=== PATIENT | male | born 1995 | race Caucasian/White ===

== ENCOUNTER 2021-03-05 11:36 | Emergency (ER) | payer MEDICAID, SELFPAY ==
[2021-03-05 11:37] VITALS: BP 132/97; PULSE 118; RESP 16; TEMP 36.2; O2SAT 98; BMI 20.8
[2021-03-05 12:26] VITALS: BP 129/87; PULSE 106; RESP 16; O2SAT 97
[2021-03-05 12:27] LABS: Absolute Lymphocyte Count 1.07 X10^3/uL (0.83-4.51); Absolute Neutrophil Count 6.4 X10^3/uL (2.0-7.7); Basophil# 0.02 X10^3/uL; Basophil% 0.2 % (0-1); Hematocrit 46.2 % (40-54); Hemoglobin 15.7 g/dL (13.0-16.5); Lymphocyte # 1.07 X10^3/ul (0.83-4.51); Lymphocyte % 12.9 % (19-41); Mean Corpuscular Hgb 28.9 pg (27.0-32.0); Mean Corpuscular Volume 85.1 fL (80-94); Mean Platelet Vol. 9.9 fl (6.2-12.0); Monocyte# 0.76 X10^3/uL; Monocyte% 9.1 % (0-10); NRBC Flagged by Analyzer 0 % (0-5); Neutrophil # 6.43 X10^3/uL (2.7-7.7); Neutrophil % 77.3 % (47-70); Platelet Count 240 K/mm3 (150-450); RBC Distribution Width CV 11.7 % (11.6-14.6); RBC Distribution Width SD 36.1 fl (35.1-43.9); Red Blood Count 5.43 M/mm3 (4.6-6.2); White Blood Count 8.3 K/mm3 (4.4-11.0)
[2021-03-05 12:33] LABS: ALB/GLOB Ratio 1.3 RATIO (0.9-2.4); AST(SGOT) 32 U/L (15-37); Alanine Aminotransfer ALT/SGPT 33 U/L (16-61); Albumin, Serum 4.3 g/dL (3.2-5.0); Alkaline Phosphatase 75 U/L (45-117); Anion Gap 10 (5-15); BUN 5 mg/dL (7-18); BUN/Creat Ratio 6.7 RATIO (10-20); Calcium,Total 8.9 mg/dL (8.5-10.1); Chloride 93 mmol/L (98-107); Creatinine, Serum 0.74 mg/dL (0.70-1.30); EST Glomerular Filtration Rate 134 mL/min (>60); Est Glom Filt Rate - Afr Amer 163 mL/min (>60); Estimated Creatinine Clearance 141.22 ml/min; Globulin 3.4 g/dL (2.2-4.2); Glucose 104 mg/dL (74-106); Potassium 3.7 mmol/L (3.5-5.1); Protein, Total 7.7 g/dL (6.4-8.2); Sodium Level 132 mmol/L (136-145)
[2021-03-05] MEDS: Ketorolac 15 MG/ML Vial IV (12:54)
[2021-03-05] MEDS: 0.9% Normal Saline 1,000 ML 999 ML IV (12:54)
[2021-03-05] MEDS: Ondansetron 4 MG/2 ML Vial IV ×2 (12:54→13:46)
[2021-03-05 13:21] LABS: Amphetamine Urine VISTA NEGATIVE (<1000 ng/mL); Barbiturate Urine VISTA NEGATIVE (< 200 ng/mL); Benzodiazepine Urine VISTA NEGATIVE (< 200 ng/mL); Cocaine Urine VISTA NEGATIVE (< 300 ng/mL); Ecstacy Urine VISTA NEGATIVE (< 500 ng/mL); Methadone Urine VISTA NEGATIVE (< 300 ng/mL); PCP Urine VISTA NEGATIVE (< 25 ng/mL); THC Urine VISTA NEGATIVE (< 50 ng/mL); Vista UDS pH Range 7
--- NOTE | 2021-03-05 13:53 | ED.RN ---
pt zofran obtained. medication vial dropped on floor. placed in sharps container. new zofran vial obtained. pharmacy notified.
--- NOTE | 2021-03-05 14:02 | HP.PCM_ITS ---
History of Present Illness Date of Admission: 03/05/21 Chief Complaint: acute alcohol withdrawal The patient is a 25 year old M with a PMH as outlined, who was admitted for acute alchohol withdrawal. ....... his last drink was about an hour prior to admission. He drinks about 2/5 of vodka per day. He went through detox in [place] a week ago. Vitals in the ED wre temp of 97.2F, BP of 129/87, ME of 106 and RR of 16. BMP showed sodium of 132 with chloride of 93 and potassium of 3.7. CBC was unremarkable and platelets were 240. Has been admitted to be managed for acute alcohol withdrawal and detox. Alcohol level is 299. Past Medical History Allergies No Known Allergies Allergy (Verified 07/13/16 02:11) Home Medications: Ambulatory Orders Medication Instructions Recorded Quetiapine Fumarate [Seroquel] 50 mg PO QHS 03/05/21 Surgical History: no surgical history Psychiatric History: No pertinent psych hx Lives: Alone Smoking Status: Current every day smoker Tobacco Use: Vapor Alcohol: Heavy Drugs: None - *Family History Maternal History Items: - - hld Review of Systems Constitutional: Denies: Chills, Fever, Malaise, Weakness, Weight Change Eyes: Denies: Blurred vision HEENT: Denies: Head Aches, Sinus Congestion, Sinus Drainage Cardiovascular: Denies: Chest Pain, Chest Pressure, Chest Tightness, Heaviness, Light Headedness, Orthopnea, Palpitations, Paroxysmal Noc. Dyspnea, Syncope Respiratory: Denies: Cough, Shortness of Breath, Shortness of breath at rest, Shortness of breath upon exertion, Sputum production Gastrointestinal: Denies: Abdominal Pain, Nausea, Vomiting Genitourinary: Denies: Dysuria Musculoskeletal: Denies: Joint Pain, Joint Tenderness Skin: Denies: Rash, Wounds Neurological: Denies: Numbness, Tingling, Focal weakness Psychiatric: Denies: Anxiety, Depression, Homicidal Ideations, Suicidal Ideations Hematologic/ Lymphatic: Denies: Easy Bruising, Easy Bleeding VTE Information - Inpt Only VTE Present on Admission: No VTE Pharm Prophylaxis ordered?: Yes - Physical Exam Vitals/I&O's: Vital Signs Temp Pulse Resp BP Pulse Ox 97.2 F L 106 H 16 129/87 H 97 03/05/21 11:37 03/05/21 12:26 03/05/21 12:26 03/05/21 12:26 03/05/21 12:26 Oxygen Delivery Method Room Air Weight: 145 lb 8.081 oz Body Mass Index (BMI) 20.8 Intake and Output for Last 24 Hours 03/03/21 03/04/21 03/05/21 23:59 23:59 23:59 Intake Total 1000 / 1000 Balance 1000 / 1000 General: Alert, Oriented x3, Cooperative, No apparent distress HEENT: Atraumatic, PERRLA, EOMI, Normocephalic Oral: Dry Mucosa Neck: Supple, No JVD, Negative Carotid Bruits Lungs: Clear to auscultation, Normal air movement, No rhonchi, No wheeze, No rales Cardiovascular: Regular rate, Regular Rhythm, Normal S1, Normal S2, No murmurs Abdomen: Bowel Sounds Present, Soft, Non Tender Extremities: No edema, Capillary Refill Less than 3 Seconds Skin: No rashes, No breakdown Musculoskeletal: No Tenderness to Palpation of Joints or Extremities Neurological: Cranial nerves II-XII grossly intact, Neuro grossly intact, Motor Exam 5/5 strength throughout Psych/Mental Status: Normal Affect, Appropriate, Alert and oriented to time, place, person, mood and affect Laboratory Results 03/05/21 12:05: WBC 8.3, RBC 5.43, Hgb 15.7, Hct 46.2, MCV 85.1, MCH 28.9, MCHC 34.0, RDW Std Deviation 36.1, RDW Coeff of Mike 11.7, Plt Count 240, MPV 9.9, Immature Gran % (Auto) 0.500, Neut % (Auto) 77.3 H, Lymph % (Auto) 12.9 L, [place] % (Auto) 9.1, Eos % (Auto) 0.0, Baso % (Auto) 0.2, Absolute Neuts (auto) 6.4, Absolute Lymphs (auto) 1.07, Nucleated RBC % 0 03/05/21 12:05: Sodium 132 L, Potassium 3.7, Chloride 93 L, Carbon Dioxide 29.0, Anion Gap 10, BUN 5 L, Creatinine 0.74, Estim Creat Clear Calc 141.22, Est GFR (MDRD) Af Amer 163, Est GFR (MDRD) Non-Af 134, BUN/Creatinine Ratio 6.7 L, Glucose 104, Calcium 8.9, Total Bilirubin 0.70, AST 32, ALT 33, Alkaline Phosphatase 75, Total Protein 7.7, Albumin 4.3, Globulin 3.4, Albumin/Globulin Ratio 1.3 03/05/21 12:05: Ethyl Alcohol 299.0 03/05/21 12:56: Urine Opiates Screen NEGATIVE, Urine Methadone Screen NEGATIVE, Ur Barbiturates Screen NEGATIVE, Ur Phencyclidine Scrn NEGATIVE, Ur Amphetamines Screen NEGATIVE, U Methamphetamin-MDMA NEGATIVE, U Benzodiazepines Scrn NEGATIVE, Urine Cocaine Screen NEGATIVE, U Cannabinoids Screen NEGATIVE, Ur Drug Screen Comment Assessment/Plan All Active Problems Arthritis of both knees (Acute) Overdose (Acute) 25 y/o admitted for acute alcohol withdrawal #Acute alcohol withdrawal * admit to med surg * oral thiamine, folic acid and multivite * alcohol withdrawal protocol with phenobarbital * Monitor CIWA score * DVT prophylaxis: low risk, encourage to ambulate Inpatient E&M: 90356 Init Hosp L3
--- NOTE | 2021-03-05 14:11 | ED.DCSUM_ITS ---
- ER Visit Summary Date of Service: 03/05/21 Chief Complaint: Alcohol abuse History of Present Illness: The patient is a [address] Diaz. He reports that he went through detox in [place] approximately 1 year ago. States that he had done well until 1 week ago. He has been drinking daily since then. He reports that he is drinking 2/5 of vodka a day. His last drink was 2 hours ago. States that he went through a pack white claws today. Patient reports that he is nauseated and had diarrhea for the past 5 days. He states he has had subjective fever and chills. He does admit to depression. He denies any suicidal ideation. Physical Examination: Vitals: Stable. Afebrile. General: Well-nourished and well-developed. Head: Normocephalic atraumatic. Neck: Supple, no lymphadenopathy. No JVD. Nontender. Cardiovascular: Regular rate and rhythm. No murmurs. Respiratory: No respiratory distress. Clear to auscultation bilaterally. Abdominal: Soft, nontender, nondistended, normal bowel sounds. No guarding, rebound, or peritoneal signs. Back: Nontender. Extremities: Nontender, no edema. Skin: Normal color, no rash. Neurologic: Alert and oriented ?3. Cranial nerves II through XII are intact. Normal strength and sensation. Psych: Normal affect. Test Results: CBC shows stable neutrophils 77 lymphocytes 13. Chem-7 shows a sodium 132, chloride 93, BUN of 5. LFTs are normal. Alcohol level is 299. Talk screen is negative. Emergency Department Course and Treatment: Patient had an IV placed. Is given liter normal saline. Is given Zofran and Toradol IV. He is resting more comfortably. Treatment Plan: The patient was discussed with Dr. Arteaga. He will be admitted to the hospital for further evaluation and treatment. I went into the patient's room to tell him that he was admitted to the hospital. States that he has changed his mind and does not want to be admitted to the hospital for his alcohol abuse. He states that he does to AA and has a sponsor. He will call for a ride to home. He instructed to follow-up with 180 soon as possible. Disposition: Discharged in stable condition. Impression: 1. Alcohol abuse. This note was generated with [employer] software. It may contain incorrect words, spelling, and punctuation that were not noted in review of the chart prior to signing ED Disposition - Plan for ED Patient: Instructions: ED Alcohol Intoxication Referrals: [facility] [STAFF PHYSICIAN] - As soon as possible
--- NOTE | 2021-03-05 14:23 | ED.RN ---
THIS RN WENT TO CHECK ON PT. PT HAD D/C IV AND COVERED SITE WITH BANDAID. IV CATHETER INTACT LAYING ON [facility] CART. PT INFORMED THAT HE NEEDS TO CALL FOR A RIDE BECAUSE HE IS INTOXICATED. THIS RN VISUALIZES PT CALL FOR RIDE HOME. PT DRESSED AWAITING D/C INSTRUCTIONS.
--- NOTE | 2021-03-05 14:30 | ED.RN ---
THIS RN WENT TO DISCHARGE PT. PT NO LONGER PRESENT IN ROOM. LEFT WITHOUT D/C INSTRUCTIONS.
== END 2021-03-05 14:39 | disposition left against medical advice (07) ==
LOC: ED 12:28
PROVIDERS: Emergency Provider Emergency Medicine; PCP Student in an Organized Health Care Education/Training Program
DX: F10.10 Alcohol abuse, uncomplicated (principal); Y90.8 Blood alcohol level of 240 mg/100 ml or more; F17.290 Nicotine dependence, other tobacco product, uncomplicated
CPT/HCPCS: 80053; 80307; 82077; 85025; 96361; 96374; 96375; 99283; J7030; A4216; J2405

== ENCOUNTER 2021-03-05 20:39 | Inpatient (IN) | payer MEDICAID, SELFPAY ==
[2021-03-05 11:37] VITALS: BMI 20.8
[2021-03-05 20:40] VITALS: BP 160/69; PULSE 102; RESP 18; TEMP 35.9; O2SAT 96; BMI 21.2
[2021-03-05 20:52] VITALS: BP 127/75; PULSE 96; RESP 20; O2SAT 96
--- NOTE | 2021-03-05 20:55 | ED.VIS.GEN ---
History of Present Illness Chief Complaint: ETOH Intox Informant: Patient, Family Narrative: Patient is a 25-year-old male with history of bipolar disorder and alcohol abuse presenting for alcohol detox. Patient has been on a padilla for the past week drinking approximately 2-3/5 of vodka a day, wine and white clots. Patient states he was sober up until week ago. He was sober for 10 months. He notes that since he has been drinking he has been having headaches, vomiting and feeling shaky. Patient was in the ER earlier today for detox but he states he got too nervous and left. He came back with his family because he has to do this. Patient notes that he did drink a sixpack of white claws before coming to the ER now. He vapes tobacco but denies any drug use or other tobacco use. No other complaints at this time. Past Medical History - Allergies and Home Meds Allergies/Adverse Reactions: Allergies No Known Allergies Allergy (Verified 07/13/16 02:11) Primary Care Physician: Eddie Diaz DO [Primary Care Provider] - Surgical History: no surgical history Smoking Status: Current every day smoker - Family History Maternal Family History: Reports: - - hld Review of Systems General: Reports: Malaise. Denies: Chills, Fever, Sweats Eyes: Denies: Visual changes - bilaterally, Diplopia ENT: Denies: Rhinorrhea, Sore throat Cardiovascular: Denies: Chest pain, Palpitations Respiratory: Denies: Dyspnea, Cough, Dyspnea on exertion Gastrointestinal: Reports: Nausea, Vomiting. Denies: Abdominal pain, Diarrhea, Melena, Hematochezia Genitourinary: Denies: Dysuria, Hematuria, Frequency Musculoskeletal: Denies: Back pain, Extremity Pain Skin: Denies: Rash, Wounds Neurological: Denies: Headache, Weakness, Numbness Psych: Reports: Anxiety. Denies: Depression, Suicidal thoughts, Suicidal ideations Physical Exam Vital Signs/Narrative: Vital Signs Temp Pulse Resp BP Pulse Ox 03/05/21 20:40 96.6 F L 102 H 18 160/69 H 96 Inital Vital Signs reviewed: Yes General: Well nourished, Well developed, No Acute Distress Head: Normocephalic, Atraumatic Eyes: Perrl, EOMI ENT: Moist mucous membranes, No rhinorrhea Neck: Supple, Nontender Cardiovascular: Regular rate, Regular rhythm, No murmurs Respiratory: No distress, CTA bilaterally, Chest nontender Abdomen: Soft, Nontender, Nondistended, Normal bowel sounds Back: Nontender, Normal Inspection Extremities: Nontender, No edema Skin: Normal color, No rash Neurological: Alert, Oriented x3, Cranial nerves II-XII grossly intact, Normal Strength, Normal Sensation Psychological: Normal affect, Normal Mood Diagnostic/Tx/Re-eval - Medical Decision Making Patient is evaluated for alcohol detox. He does not appear to be acutely withdrawing however he does feel quite anxious. Patient was seen earlier today and then went home and drank more and then came back his last drink was about an hour prior to arrival. He had labs drawn today so did not repeat them. Patient is given Zofran for his nausea. He will be admitted for inpatient detox. Patient is agreeable with this plan of care and states he will stay this time. ED Disposition - Plan for ED Patient: Disposition: Acute Care Hospital [facility] Diagnosis: Alcohol dependency Referrals: Eddie Diaz DO [Primary Care Provider] -
--- NOTE | 2021-03-05 20:57 | PCM.HP.STD ---
Problem List (1) Alcohol withdrawal Status: Acute Qualifiers: Complication of substance-induced condition: with unspecified complication Qualified Code(s): F10.239 - Alcohol dependence with withdrawal, unspecified (2) Tobacco use Status: Chronic (3) Anxiety and depression Status: Chronic (4) Bipolar disorder Status: Chronic Qualifiers: Active/Remission status: remission status unspecified Qualified Code(s): F31.9 - Bipolar disorder, unspecified (5) History of suicide attempt Status: Chronic History of Present Illness Date of Admission: 03/05/21 Chief Complaint: EtOH withdrawal The patient is a 25 y/o M w/ PMHx: Tobacco use, Anxiety and Depression, EtOH Abuse, History of opiate abuse (snorted vicodin prior) who presents to the [facility] on 03/05/21 w/ noted acute EtOH withdrawal, onset starting earlier in the day given decreased amount of intake following last EtOH intake prior to ED arrival normal consumption 2-3/5 of vodka per day as in addition to wine and white claw with reported history of being sober recently up until approximately a week ago with onset significant padilla despite having been sober for 10 months. Patient now presenting with onset of nausea, tremors, agitation, tactile disturbances. Patient interested in attaining sober status noting that he needs to do this for his family and states that if he continues to drink it will likely lead to his early . He does report that he started drinking again over the last week secondary to a break-up. He does report poor oral intake over the last several days secondary to depression but no specific suicidal ideation. He is taking his antidepressant/antianxiolytic/bipolar regimen. Patient initially presented earlier in the day to the ED and at that time was offered admission but ended up leaving and now returns. ED labs performed earlier in the day included CBC with WC 8.3, hemoglobin 15.7, platelet 240 without marked shift, CMP with sodium 132, chloride 93 otherwise unremarkable including hepatic profile, urine drug screen negative, ethyl alcohol level at that time had been 299. Past Medical History Past Medical History (Chronic Problems): Chronic Problems Tobacco use (Chronic) Anxiety and depression (Chronic) Bipolar disorder (Chronic) History of suicide attempt (Chronic) Allergies No Known Allergies Allergy (Verified 07/13/16 02:11) Home Medications: Ambulatory Orders Medication Instructions Recorded Divalproex Sodium 250 mg PO QHS 03/05/21 Quetiapine Fumarate [Seroquel] 50 mg PO QHS 03/05/21 busPIRone [Buspar] 1 capsule PO DAILY 03/05/21 Surgical History: no surgical history Psychiatric History: Anxiety, Bipolar, Depression, Prior suicide attempt Lives: With Family - Patient lives with his parents. Smoking Status: Current every day smoker Tobacco Use: Vapor - Patient notes 1 cartridge usually lasts in 1 week., - - Patient prior to vaping smokes cigarette tobacco since youth approximately 5 cigarettes daily but quit and transition to vaping over the last half a year. Alcohol: Heavy - Patient currently started drinking again approximately 2-3/5 vodka in addition to wine and white claws. Drugs: - - Patient previous usage of opiates, notes being clean for the last 3 to 4 years. - *Family History Maternal History Items: High Cholesterol Paternal History Items: High Cholesterol, Hypertension Review of Systems Constitutional: Reports: Anorexia, Malaise, Weakness, Fatigue. Denies: Chills, Fever, Weight Change HEENT: Denies: Head Aches, Sinus Congestion, Sinus Drainage Cardiovascular: Denies: Chest Pain, Palpitations Respiratory: Denies: Cough, Shortness of breath at rest, Sputum production Gastrointestinal: Reports: Nausea. Denies: Abdominal Pain, Vomiting Genitourinary: Denies: Dysuria Musculoskeletal: Reports: Joint Pain. Denies: Joint Tenderness Skin: Denies: Rash, Wounds Neurological: Denies: Numbness, Tingling, Focal weakness Psychiatric: Reports: Anxiety, Depression. Denies: Homicidal Ideations, Suicidal Ideations Hematologic/ Lymphatic: Denies: Easy Bruising, Easy Bleeding VTE Information - Inpt Only VTE Present on Admission: No VTE Mechan Device Prophylaxis: None VTE Pharm Prophylaxis ordered?: No Reason prophylaxis not ordered:: Treatment Not Indicated Patient Problems: Active and Suspected Problems Alcohol dependency (Acute) Subjective: Patient seated upright in the ED bed, fatigued, tearful during discussions, mild tremors. Objective: Physical Examination: General: awake, alert, oriented x 3 and cooperative, seated upright in the ED bed, fatigued, tearful during discussions, mild tremors evident. Skin: normal color, turgor, no icterus, cyanosis. HEENT: AT/NC, EOMI, PERRLA, dry MM, no carotid bruits or JVD noted. Lungs: CTA bilaterally, moderate effort, mild decrease BL bases, no rales, ronchi or wheezing. Heart: Tachycardic with regular rhythm; no gallop, rub audible. Abdomen: soft, NTTP, ND, normal BS, no HSM. Extremities: no cyanosis, clubbing, or edema. Neurological: patient awake, alert, oriented as noted; cognitive function intact; pupils equally reactive to light and accomodation; cranial nerves II-XII grossly normal, moving all 4 extremities, no focal deficits, strength mildly global decrease secondary to acute presentation, mild tremors evident. Psychiatric: affect appears tearful, anxious, does admit to anxiety and depression, recent break-up, no SI. - Physical Exam Vitals/I&O's: Vital Signs Temp Pulse Resp BP Pulse Ox 96.6 F L 102 H 18 160/69 H 96 03/05/21 20:40 03/05/21 20:40 03/05/21 20:40 03/05/21 20:40 03/05/21 20:40 Oxygen Delivery Method Room Air Weight: 147 lb 11.355 oz Body Mass Index (BMI) 21.2 Assessment/Plan All Active Problems Alcohol dependency (Acute) Alcohol withdrawal (Acute) Arthritis of both knees (Acute) Overdose (Acute) The patient is a 25 y/o M w/ PMHx: Tobacco use, Anxiety and Depression, EtOH Abuse, History of opiate abuse (snorted vicodin prior) who presents to the [facility] on 03/05/21 w/ noted acute EtOH withdrawal. 1. Acute EtOH Withdrawal: Will admit to medical surgical floor, routine labs obtained in the ED earlier as noted. Given interest in sobriety, will initiate and continue on protocol with taper course of Phenobarbital, scheduled gabapentin for seizure prophylaxis, as needed Catapres, Bentyl, Vistaril, IV fluids, IV antiemetics, Tylenol as needed for pain. Will consult Case management for assistance for transition to next level of rehabilitation care. Mag, phos pending. Maintain on C[facility] protocol concurrently. 2. History of polysubstance abuse including prior opiate use: Patient with prior remote admission with at that time Tylenol and opiate overdose, had been snorting [place] but denies any current use and states he has been clean for 3 to 4 years, UDS performed earlier in the day upon initial ED presentation negative. 3. Anxiety and Depression: We will continue patient home BuSpar, Depakote and Seroquel once dosing verified, encourage continued outpatient follow-up as likely associate with #1 especially given recent break-up. 4. Tobacco Abuse: Encouraged cessation including recent transition to vaping and discussed health concerns, inpatient consultation per RT, NR if desired. 5. DVT prophylaxis: Low risk, encourage ambulation. Inpatient E&M: 26394 Init Hosp L3
[2021-03-05] MEDS: Ondansetron ODT 4 MG Tablet PO (21:06)
[2021-03-05 21:20] VITALS: BP 123/84; PULSE 94; RESP 20; TEMP 36.7; O2SAT 96
[2021-03-05 21:57] VITALS: BP 124/63; PULSE 90; RESP 18; TEMP 37.2; O2SAT 99
[2021-03-05 22:00] VITALS: BMI 20.8
[2021-03-05 22:11] VITALS: BMI 20.9
[2021-03-05] MEDS: Ondansetron 8 MG Tablet PO (23:01)
[2021-03-05] MEDS: 0.9% Saline Lock 10 ML Syringe IV (23:04)
[2021-03-05 23:08] LABS: Magnesium 1.1 mg/dL (1.6-2.6); Phosphorus 1.6 mg/dL (2.5-4.9)
[2021-03-05] MEDS: Phenobarbital 32.4 MG Tablet 64.8 MG PO (23:25)
[2021-03-05] MEDS: Divalproex Sodium 250 MG Tablet PO (23:26)
[2021-03-05] MEDS: QUEtiapine 25 MG Tablet 50 MG PO (23:27)
[2021-03-05] MEDS: Magnesium Sulfate 4gm/100mL 4 GM/100 ML IV.SOLN. IV (23:53)
[2021-03-06] VITALS (10 sets, daily range): BP systolic 102–144; BP diastolic 62–89; PULSE 79–109; RESP 16–18; TEMP 36.7–37.3; O2SAT 96–99
[2021-03-06] MEDS: 0.9% Saline Lock 10 ML Syringe IV ×3 (00:35→22:56)
[2021-03-06] MEDS: Phenobarbital 32.4 MG Tablet 64.8 MG PO ×6 (02:40→22:54)
[2021-03-06] MEDS: hydrOXYzine PAM 25 MG Capsule 50 MG PO (02:40)
[2021-03-06] MEDS: Loperamide 2 MG Capsule PO ×2 (02:41→06:43)
[2021-03-06] MEDS: Folic Acid 1 MG Tablet PO (07:37)
[2021-03-06] MEDS: Multivitamins,Therapeutic Tablet 1 TABLET PO (07:38)
[2021-03-06] MEDS: Thiamine Hydrochloride 100 MG Tablet PO (07:38)
[2021-03-06 09:04] LABS: Magnesium 2.7 mg/dL (1.6-2.6); Phosphorus 2.9 mg/dL (2.5-4.9)
[2021-03-06] MEDS: Mag Hydrox/Al Hydrox/Simeth 30 ML UDC PO (09:05)
[2021-03-06] MEDS: busPIRone 15 MG TABLET PO (09:06)
[2021-03-06] MEDS: Na Biphos/Potassium Phosphate PACKET 1 PACKET PO ×4 (10:51→22:53)
--- NOTE | 2021-03-06 11:26 | CASEMGMT ---
SOCIAL WORK Patient admitted to [facility] last evening. Call to [facility] Treatment Navigator, Elaine. Per Elaine, will be in tomorrow to complete assessment. Albert Hogue, CSR RETAIL, [employer]
--- NOTE | 2021-03-06 14:23 | PCM.PROGNOTE ---
Patient Problems: Active and Suspected Problems Alcohol dependency (Acute) Alcohol withdrawal (Acute) Subjective: Patient was seen and examined today, he is asking this examiner when he thought he could be discharged, he states he is planning to follow-up with outpatient detox services after discharge. Patient does not complain of tremor or excessive nervousness today - Physical Exam Vitals/I&O's: Vital Signs Temp Pulse Resp BP Pulse Ox 99 F 102 H 16 102/73 98 03/06/21 10:00 03/06/21 10:00 03/06/21 10:00 03/06/21 10:00 03/06/21 10:00 Oxygen Delivery Method Room Air Weight: 66.1 kg Body Mass Index (BMI) 20.8 Intake and Output for Last 24 Hours 03/04/21 03/05/21 03/06/21 23:59 23:59 23:59 Intake Total 1357 / 1357 Balance 1357 / 1357 General: Alert, Oriented x3, Cooperative, No apparent distress, Well developed, Well nourished HEENT: Atraumatic, PERRLA, EOMI, Normocephalic Oral: Moist Mucosa Neck: Supple, No JVD, Trachea Midline, Thyroid Normal Size and Texture Lungs: Clear to auscultation, Normal air movement, No rhonchi, No wheeze, No rales Cardiovascular: Regular rate, Regular Rhythm, Normal S1, Normal S2, No murmurs, PMI Normal, No rub noted, No Gallop Abdomen: Bowel Sounds Present, Soft, Non Tender, Non-Distended, No hernias noted Extremities: No clubbing, No cyanosis, No edema, Capillary Refill Less than 3 Seconds Skin: No rashes, No breakdown Musculoskeletal: No Tenderness to Palpation of Joints or Extremities Neurological: Cranial nerves II-XII grossly intact, Neuro grossly intact, Sensory exam intact to light touch and pain, Coordination normal Psych/Mental Status: Normal Affect, Appropriate, Alert and oriented to time, place, person, mood and affect Laboratory Results 03/05/21 12:05: Phosphorus 1.6 L, Magnesium 1.1 L 03/06/21 08:12: Phosphorus 2.9, Magnesium 2.7 H Current Medications Al Hydroxide/Mg Hydroxide (Mag Hydrox/Al Hydrox/Simeth 30 Ml Udc) 30 ml PO Q4H PRN PRN PRN Reason: DYSPEPSIA Last Admin: 03/06/21 09:05 Dose: 30 ml Documented by: Albuterol Sulfate (Albuterol 2.5 Mg/3 Ml Vial.Neb.) 2.5 mg INHALATION Q2H PRN PRN PRN Reason: Dyspnea, wheezing Buspirone HCl (Buspirone 15 Mg Tablet) 15 mg PO BID [facility] Last Admin: 03/06/21 09:06 Dose: 15 mg Documented by: Divalproex Sodium (Divalproex Sodium 250 Mg Tablet) 250 mg PO QHS [facility] Last Admin: 03/05/21 23:26 Dose: 250 mg Documented by: Folic Acid (Folic Acid 1 Mg Tablet) 1 mg PO DAILY@0800 [facility] Last Admin: 03/06/21 07:37 Dose: 1 mg Documented by: Multivitamins (Multivitamins,Therapeutic Tablet) [facility] Last Admin: 03/06/21 07:38 Dose: 1 tablet Documented by: Nicotine (Nicotine 14 Mg Patch) 14 mg TD DAILY [facility] Last Admin: 03/06/21 09:06 Dose: 14 mg Documented by: Ondansetron HCl (Ondansetron 8 Mg Tablet) 8 mg PO Q8H PRN PRN PRN Reason: NAUSEA Last Admin: 03/05/21 23:01 Dose: 8 mg Documented by: Phenobarbital (Phenobarbital 32.4 Mg Tablet) 97.2 mg PO Q4H [facility]; Taper Stop: 03/10/21 06:59 Last Admin: 03/06/21 10:51 Dose: 97.2 mg Documented by: Potassium Phos/Sodium Phos (Na Biphos/Potassium Phosphate Packet) 1 packet PO 4X/DAY [facility] Last Admin: 03/06/21 10:51 Dose: 1 packet Documented by: Quetiapine Fumarate (Quetiapine 25 Mg Tablet) 50 mg PO QHS [facility] Last Admin: 03/05/21 23:27 Dose: 50 mg Documented by: Sodium Chloride (0.9% Saline Lock 10 Ml Syringe) 10 - 40 ml IV UD PRN PRN Reason: SALINE FLUSH Last Admin: 03/06/21 06:39 Dose: 10 ml Documented by: Thiamine HCl (Thiamine Hydrochloride 100 Mg Tablet) [facility] Last Admin: 03/06/21 07:38 Dose: 100 mg Documented by: Trazodone HCl (Trazodone 100 Mg Tablet) 100 mg PO QHS PRN PRN Reason: INSOMNIA Medical Necessity - Tobacco Use Smoking Status: Current every day smoker Tobacco Use: Vapor, - Assessment/Plan All Active Problems Alcohol dependency (Acute) Alcohol withdrawal (Acute) Overdose (Acute) #1 acute alcohol withdrawal, continue present medications, I have discontinued some of the medications I do not believe the patient needs at this time #2 chronic alcoholism #3 anxiety/depression #4 hypomagnesemia-this is corrected #5 hypophosphatemia Inpatient E&M: 59595 Subs Hosp L2
[2021-03-06] MEDS: QUEtiapine 25 MG Tablet 50 MG PO (22:53)
[2021-03-06] MEDS: Divalproex Sodium 250 MG Tablet PO (22:54)
[2021-03-07 03:19] VITALS: BP 116/60; PULSE 64; RESP 16; TEMP 36.8; O2SAT 97
[2021-03-07] MEDS: Phenobarbital 32.4 MG Tablet 64.8 MG PO ×6 (03:20→22:03)
[2021-03-07 06:36] VITALS: O2SAT 94
[2021-03-07 07:25] VITALS: BP 108/65; PULSE 66; RESP 16; TEMP 36.6; O2SAT 98
[2021-03-07] MEDS: Thiamine Hydrochloride 100 MG Tablet PO (07:35)
[2021-03-07] MEDS: Multivitamins,Therapeutic Tablet 1 TABLET PO (07:35)
[2021-03-07] MEDS: Folic Acid 1 MG Tablet PO (07:36)
[2021-03-07] MEDS: busPIRone 15 MG TABLET PO ×3 (07:36→22:03)
[2021-03-07] MEDS: Na Biphos/Potassium Phosphate PACKET 1 PACKET PO ×4 (10:31→22:03)
[2021-03-07 14:41] VITALS: BP 134/81; PULSE 97; RESP 16; TEMP 37.2; O2SAT 98
--- NOTE | 2021-03-07 16:02 | PN_ITS ---
Patient Problems: Active and Suspected Problems Alcohol dependency (Acute) Alcohol withdrawal (Acute) Subjective: Patient was seen and examined today, he was meeting with addiction director social to discuss discharge planning, patient asked me if he could be discharged today and I told him I advised against it. This afternoon he requested something for anxiety-I increased his BuSpar and placed him on some Vistaril. The plan as it stands appears to be that he will be discharged tomorrow with follow-up as an outpatient in the [facility]. Patient does not feel at this time that he is having serious withdrawal symptoms, he did complain about being nervous this afternoon however. - Physical Exam Vitals/I&O's: Vital Signs Temp Pulse Resp BP Pulse Ox 99.0 F 97 16 134/81 H 98 03/07/21 14:41 03/07/21 14:41 03/07/21 14:41 03/07/21 14:41 03/07/21 14:41 Oxygen Delivery Method Room Air Weight: 66.1 kg Body Mass Index (BMI) 20.8 Intake and Output for Last 24 Hours 03/05/21 03/06/21 03/07/21 23:59 23:59 23:59 Intake Total 1857 / 2357 500 / 500 Balance 1857 / 2357 500 / 500 General: Alert, Oriented x3, Cooperative, No apparent distress, Well developed, Well nourished HEENT: Atraumatic, PERRLA, EOMI, Normocephalic Oral: Moist Mucosa Neck: Supple, No JVD, Trachea Midline, Thyroid Normal Size and Texture Lungs: Clear to auscultation, Normal air movement, No rhonchi, No wheeze, No rales Cardiovascular: Regular rate, Regular Rhythm, Normal S1, Normal S2, No murmurs, PMI Normal, No rub noted, No Gallop Abdomen: Bowel Sounds Present, Soft, Non Tender, Non-Distended, No hernias noted Extremities: No clubbing, No cyanosis, No edema, Capillary Refill Less than 3 Seconds Skin: No rashes, No breakdown Musculoskeletal: No Tenderness to Palpation of Joints or Extremities Neurological: Cranial nerves II-XII grossly intact, Neuro grossly intact, Motor Exam 5/5 strength throughout, Sensory exam intact to light touch and pain Psych/Mental Status: Normal Affect, Appropriate, Alert and oriented to time, place, person, mood and affect Current Medications Al Hydroxide/Mg Hydroxide (Mag Hydrox/Al Hydrox/Simeth 30 Ml Udc) 30 ml PO Q4H PRN PRN PRN Reason: DYSPEPSIA Last Admin: 03/06/21 09:05 Dose: 30 ml Documented by: Albuterol Sulfate (Albuterol 2.5 Mg/3 Ml Vial.Neb.) 2.5 mg INHALATION Q2H PRN PRN PRN Reason: Dyspnea, wheezing Buspirone HCl (Buspirone 15 Mg Tablet) 15 mg PO TID [facility] Last Admin: 03/07/21 15:10 Dose: 15 mg Documented by: Divalproex Sodium (Divalproex Sodium 250 Mg Tablet) 250 mg PO QHS [facility] Last Admin: 03/06/21 22:54 Dose: 250 mg Documented by: Folic Acid (Folic Acid 1 Mg Tablet) 1 mg PO DAILY@0800 [facility] Last Admin: 03/07/21 07:36 Dose: 1 mg Documented by: Hydroxyzine Pamoate (Hydroxyzine Leelee 25 Mg Capsule) 50 mg PO Q6H PRN PRN PRN Reason: ANXIETY Multivitamins ([facility]it[facility],Therapeutic Tablet) [facility] Last Admin: 03/07/21 07:35 Dose: 1 tablet Documented by: Nicotine (Nicotine 14 Mg Patch) 14 mg TD DAILY [facility] Last Admin: 03/07/21 10:31 Dose: 14 mg Documented by: Ondansetron HCl (Ondansetron 8 Mg Tablet) 8 mg PO Q8H PRN PRN PRN Reason: NAUSEA Last Admin: 03/05/21 23:01 Dose: 8 mg Documented by: Phenobarbital (Phenobarbital 32.4 Mg Tablet) 64.8 mg PO Q4H [facility]; Taper Stop: 03/10/21 06:59 Last Admin: 03/07/21 14:48 Dose: 64.8 mg Documented by: Potassium Phos/Sodium Phos (Na Biphos/Potassium Phosphate Packet) 1 packet PO 4X/DAY [facility] Last Admin: 03/07/21 14:49 Dose: 1 packet Documented by: Quetiapine Fumarate (Quetiapine 25 Mg Tablet) 50 mg PO QHS [facility] Last Admin: 03/06/21 22:53 Dose: 50 mg Documented by: Sodium Chloride (0.9% Saline Lock 10 Ml Syringe) 10 - 40 ml IV UD PRN PRN Reason: SALINE FLUSH Last Admin: 03/06/21 22:56 Dose: 10 ml Documented by: Thiamine HCl (Thiamine Hydrochloride 100 Mg Tablet) 100 mg PO DAILYCM JANI Last Admin: 03/07/21 07:35 Dose: 100 mg Documented by: Trazodone HCl (Trazodone 100 Mg Tablet) 100 mg PO QHS PRN PRN Reason: INSOMNIA Medical Necessity - Tobacco Use Smoking Status: Current every day smoker Tobacco Use: Vapor, - Assessment/Plan All Active Problems Alcohol dependency (Acute) Alcohol withdrawal (Acute) Overdose (Resolved) #1 acute alcohol withdrawal, continue present medications, I have increased the patient's BuSpar today to 3 times a day and I placed him on Vistaril as needed for anxiety. I anticipate the patient being discharged tomorrow to outpatient follow-up for detox services. #2 chronic alcoholism #3 anxiety/depression #4 hypomagnesemia-this is corrected #5 hypophosphatemia-corrected Inpatient E&M: 11259 Subs Hosp L2
[2021-03-07 19:50] VITALS: BP 130/73; PULSE 88; RESP 14; TEMP 36.8; O2SAT 96
[2021-03-07] MEDS: hydrOXYzine PAM 25 MG Capsule 50 MG PO (19:56)
[2021-03-07] MEDS: QUEtiapine 25 MG Tablet 50 MG PO (22:03)
[2021-03-07] MEDS: Divalproex Sodium 250 MG Tablet PO (22:03)
[2021-03-08 02:14] VITALS: BP 108/69; PULSE 86; RESP 16; TEMP 36.5; O2SAT 96
[2021-03-08] MEDS: Phenobarbital 32.4 MG Tablet 64.8 MG PO ×2 (02:18→06:11)
[2021-03-08] MEDS: busPIRone 15 MG TABLET PO (06:12)
[2021-03-08 08:16] VITALS: O2SAT 96
[2021-03-08] MEDS: Na Biphos/Potassium Phosphate PACKET 1 PACKET PO (08:57)
[2021-03-08] MEDS: Thiamine Hydrochloride 100 MG Tablet PO (08:57)
[2021-03-08] MEDS: Folic Acid 1 MG Tablet PO (08:57)
[2021-03-08] MEDS: hydrOXYzine PAM 25 MG Capsule 50 MG PO (09:00)
[2021-03-08] MEDS: Multivitamins,Therapeutic Tablet 1 TABLET PO (09:00)
[2021-03-08 09:13] VITALS: BP 130/76; PULSE 88; RESP 16; TEMP 36.6; O2SAT 100
--- NOTE | 2021-03-08 09:17 | DCINST_ITS ---
- Discharge Diagnoses Current Active Problems: Current Active and Chronic Problems Alcohol dependency (Acute) Alcohol withdrawal (Acute) Tobacco use (Chronic) Anxiety and depression (Chronic) Bipolar disorder (Chronic) History of suicide attempt (Chronic) You will use the following diet at home:: No restrictions Allergies/Adverse Reactions: Allergies No Known Allergies Allergy (Verified 07/13/16 02:11) Medications to take at Discharge Divalproex Sodium 250 mg PO QHS 03/05/21 Quetiapine Fumarate [Seroquel] 50 mg PO QHS 03/05/21 busPIRone [Buspar] 1 capsule PO BID 03/05/21 Multivitamins,Therapeutic [Multivitamin] 1 tablet PO DAILYCM tablet 03/08/21 Primary Care Physician: Eddie Diaz DO [Primary Care Provider] - Test Results: Test results from this visit will be discussed in further detail at your follow- up appointment, if applicable. Please Follow Up With: YANI Proposed Discharge Date: 03/08/21
--- NOTE | 2021-03-08 09:18 | DS.PCM_ITS ---
Discharge Date and Diagnosis - Problem List Patient Problems: Active and Suspected Problems Alcohol dependency (Acute) Alcohol withdrawal (Acute) Date of Admission: 03/05/21 Date of Discharge: 03/08/21 - Primary Discharge Diagnosis Acute Problems: Active Problems Alcohol dependency (Acute) Alcohol withdrawal (Acute) - Secondary Discharge Diagnosis Chronic Problems: Chronic Problems Tobacco use (Chronic) Anxiety and depression (Chronic) Bipolar disorder (Chronic) History of suicide attempt (Chronic) Hospital Course and Treatment Operations: None Procedures: None Summary of Care Provided: The patient is a 25 year old M presents seeking treatment for alcohol withdrawal. Patient had been seen earlier in the day and then laughed when to come back to the emergency room. Patient was drinking 2-3/5 of vodka per day in addition to wine and white claws. Patient was started on phenobarbital his other medications for other somatic complaints. Patient was complaining of some anxiety and his buspirone was increased from twice daily to 3 times daily. Patient has remained stable during his hospitalization and has not had any decompensation from his alcohol withdrawal. Patient will be following up with [facility] in [place] for further addiction treatment. He will be discharged in stable condition. [] Patient Problems: Active and Suspected Problems Alcohol dependency (Acute) Alcohol withdrawal (Acute) - Physical Exam Vitals/I&O's: Vital Signs Temp Pulse Resp BP Pulse Ox 36.6 C 88 16 130/76 H 100 03/08/21 09:13 03/08/21 09:13 03/08/21 09:13 03/08/21 09:13 03/08/21 09:13 Oxygen Delivery Method Room Air Weight: 66.1 kg Body Mass Index (BMI) 20.8 Intake and Output for Last 24 Hours 03/06/21 03/07/21 03/08/21 23:59 23:59 23:59 Intake Total 1856 / 2356 1050 / 1050 Balance 1856 1050 / 1050 General: Alert, No apparent distress HEENT: Atraumatic, Normocephalic Psych/Mental Status: Appropriate, Flat Affect Current Medications Al Hydroxide/Mg Hydroxide (Mag Hydrox/Al Hydrox/Simeth 30 Ml Udc) 30 ml PO Q4H PRN PRN PRN Reason: DYSPEPSIA Last Admin: 03/06/21 09:05 Dose: 30 ml Documented by: Albuterol Sulfate (Albuterol 2.5 Mg/3 Ml Vial.Neb.) 2.5 mg INHALATION Q2H PRN PRN PRN Reason: Dyspnea, wheezing Buspirone HCl (Buspirone 15 Mg Tablet) 15 mg PO TID [facility] Last Admin: 03/08/21 06:12 Dose: 15 mg Documented by: Divalproex Sodium (Divalproex Sodium 250 Mg Tablet) 250 mg PO QHS [facility] Last Admin: 03/07/21 22:03 Dose: 250 mg Documented by: Folic Acid (Folic Acid 1 Mg Tablet) 1 mg PO DAILY@0800 [facility] Last Admin: 03/08/21 08:57 Dose: 1 mg Documented by: Hydroxyzine Pamoate (Hydroxyzine Leelee 25 Mg Capsule) 50 mg PO Q6H PRN PRN PRN Reason: ANXIETY Last Admin: 03/08/21 09:00 Dose: 50 mg Documented by: Multivitamins ([facility]ivit[facility],Therapeutic Tablet) [facility] Last Admin: 03/08/21 09:00 Dose: 1 tablet Documented by: Nicotine (Nicotine 14 Mg Patch) 14 mg TD DAILY [facility] Last Admin: 03/08/21 08:58 Dose: 14 mg Documented by: Ondansetron HCl (Ondansetron 8 Mg Tablet) 8 mg PO Q8H PRN PRN PRN Reason: NAUSEA Last Admin: 03/05/21 23:01 Dose: 8 mg Documented by: Phenobarbital (Phenobarbital 32.4 Mg Tablet) 64.8 mg PO Q6H [facility]; Taper Stop: 03/10/21 06:59 Last Admin: 03/08/21 06:11 Dose: 64.8 mg Documented by: Potassium Phos/Sodium Phos (Na Biphos/Potassium Phosphate Packet) 1 packet PO 4X/DAY [facility] Last Admin: 03/08/21 08:57 Dose: 1 packet Documented by: Quetiapine Fumarate (Quetiapine 25 Mg Tablet) 50 mg PO QHS [facility] Last Admin: 03/07/21 22:03 Dose: 50 mg Documented by: Sodium Chloride (0.9% Saline Lock 10 Ml Syringe) 10 - 40 ml IV UD PRN PRN Reason: SALINE FLUSH Last Admin: 03/06/21 22:56 Dose: 10 ml Documented by: Thiamine HCl (Thiamine Hydrochloride 100 Mg Tablet) [facility] Last Admin: 03/08/21 08:57 Dose: 100 mg Documented by: Trazodone HCl (Trazodone 100 Mg Tablet) 100 mg PO QHS PRN PRN Reason: INSOMNIA Discharge Diet: No Restrictions Home Medications: Medications to take at Discharge Divalproex Sodium 250 mg PO QHS 03/05/21 Quetiapine Fumarate [Seroquel] 50 mg PO QHS 03/05/21 busPIRone [Buspar] 1 capsule PO BID 03/05/21 Multivitamins,Therapeutic [Multivitamin] 1 tablet PO DAILYCM tablet 03/08/21 Primary Care Physician: Eddie Diaz DO [Primary Care Provider] - Please Follow Up With: YANI Disposition: Home Minutes spent on discharge:: 25 Patient Condition:: Good Medical Necessity - Tobacco Use Smoking Status: Current every day smoker Tobacco Use: Vapor, - Meaningful Use Info Meaningful Use Diagnoses (Choose all that apply): None applicable Inpatient E&M: 71037 [facility]
== END 2021-03-08 10:05 | disposition home or self-care (01) | DRG 897 ==
LOC: ED 21:06 → MS3 21:22
PROVIDERS: Admitting Provider Family Medicine; Emergency Provider Emergency Medicine; PCP Student in an Organized Health Care Education/Training Program
DX: F10.239 Alcohol dependence with withdrawal, unspecified (principal); F17.290 Nicotine dependence, other tobacco product, uncomplicated; Y90.8 Blood alcohol level of 240 mg/100 ml or more; F31.9 Bipolar disorder, unspecified; F41.9 Anxiety disorder, unspecified; Z79.899 Other long term (current) drug therapy; E83.42 Hypomagnesemia; E83.39 Other disorders of phosphorus metabolism
CPT/HCPCS: 36415; 80053; 80307; 82077; 83735; 84100; 85025; 96361; 96374; 96375; 99283; 99285; 99406; J7030; J7050; A4216; J2405